=== PATIENT | male | born 1985 ===

== ENCOUNTER 2019-05-06 18:52 | Emergency (ER) | payer SELFPAY ==
--- NOTE | 2019-05-06 19:32 | EDM.PDOC ---
ED HPI GENERAL MEDICAL PROBLEM - General Chief Complaint: General Stated Complaint: MENTAL HEALTH CHECK Time Seen by Provider: 05/06/19 19:22 Source of Information: Reports: Patient, Police History Limitations: Reports: No Limitations - History of Present Illness INITIAL COMMENTS - FREE TEXT/NARRATIVE: HISTORY AND PHYSICAL: History of present illness: Patient is 33-year-old male presents to the ED in police custody for concern of cutting himself. Police state that per patient's and daughter, the patient ran out of meth today and he cut himself. Patient states he does not know why he cut himself but denies wanting to kill himself. He did not tell his family or police that he wanted to kill himself. He uses meth daily and today has drank about 42 oz of budweiser. Patient denies daily alcohol use, states the last time he drank was over one month ago. He denies history of anxiety or depression and no previous suicidal ideation or attempts. Denies significant past medical history. Review of systems: As per history of present illness and below otherwise all systems reviewed and negative. Past medical history: As per history of present illness and as reviewed below otherwise noncontributory. Surgical history: As per history of present illness and as reviewed below otherwise noncontributory. Social history: No reported history of drug or alcohol abuse. Family history: As per history of present illness and as reviewed below otherwise noncontributory. Physical exam: General: Patient sitting comfortably in no acute distress and nontoxic appearing HEENT: Atraumatic, normocephalic, pupils reactive, negative for conjunctival pallor or scleral icterus, mucous membranes moist, throat clear, neck supple, nontender, trachea midline. No meningeal signs. Lungs: Clear to auscultation, breath sounds equal bilaterally, chest nontender. Heart: S1S2, regular, negative for clicks, rubs, or overt murmur. Abdomen: Soft, nondistended, nontender. Negative for masses or hepatosplenomegaly. Negative for costovertebral tenderness. No rigidity, rebound , guarding. Pelvis: Stable nontender. Genitourinary: Deferred. Rectal: Deferred. Extremities: Atraumatic, negative for cords or calf pain. Neurovascular unremarkable. Neuro: Awake, alert, oriented. Cranial nerves II through XII unremarkable. Cerebellum unremarkable. Motor and sensory unremarkable throughout. Exam nonfocal. Notes: [facility] is not accepting psychiatric transfers at this time. Discussed with Dr. Benavidez, she is declined to accept this patient as he is denying suicidal thoughts. She advised police or family go to the States trust and estates attorney and get a petition for involuntary committal. This was discussed with police and patient will be taken to correction and police while file for involuntary committal. Diagnostics: Mental evaluation work up Therapeutics: [] Prescriptions: Impression: Cutting behavior, substance abuse, medical clearance for incarceration Definitive disposition and diagnosis as appropriate pending reevaluation and review of above. - Related Data Allergies Allergy/AdvReac Type Severity Reaction Status Date / Time No Known Allergies Allergy Verified 05/06/19 19:05 Home Meds: Home Meds . [No Known Home Meds] 05/06/19 [History] Past Medical History - Past Health History Medical/Surgical History: Denies Medical/Surgical History - Infectious Disease History Infectious Disease History: Reports: None Social & Family History - Family History Family Medical History: Noncontributory - Tobacco Use Smoking Status *Q: Never Smoker Used Tobacco, but Quit: No - Caffeine Use Caffeine Use: Reports: None - Recreational Drug Use Recreational Drug Use: Yes Recreational Drug Type: Reports: Methamphetamine ED ROS GENERAL - Review of Systems Review Of Systems: Comprehensive ROS is negative, except as noted in HPI. ED EXAM, GENERAL - Physical Exam Exam: See Below (see dictation) Course - Vital Signs Last Recorded V/S: Last Vital Signs Temp 96.9 F 05/06/19 19:05 Pulse 133 H 05/06/19 19:05 Resp 18 05/06/19 19:05 BP 94/52 L 05/06/19 19:11 Pulse Ox 95 05/06/19 19:05 - Orders/Labs/Meds Orders: Active Orders 24 hr Category Date Time Status EKG Documentation Completion [RC] STAT Care 05/06/19 19:19 Ordered DRUG SCREEN, URINE [URCHEM] Stat Lab 05/06/19 19:19 Ordered UA W/MICROSCOPIC [URIN] Stat Lab 05/06/19 19:19 Ordered Labs: Laboratory Tests 05/06/19 05/06/19 Range/Units 19:34 19:34 WBC 8.15 (4.0-11.0) K/uL RBC 6.02 H (4.50-5.90) M/uL Hgb 19.1 H (13.0-17.0) g/dL Hct 52.3 H (38.0-50.0) % MCV 86.9 (80.0-98.0) fL MCH 31.7 (27.0-32.0) pg MCHC 36.5 (31.0-37.0) g/dL RDW Std Deviation 41.0 (28.0-62.0) fl RDW Coeff of Mart 13 (11.0-15.0) % Plt Count 216 (150-400) K/uL MPV 12.20 H (7.40-12.00) fL Neut % (Auto) 58.9 (48.0-80.0) % Lymph % (Auto) 30.8 (16.0-40.0) % Gordon % (Auto) 7.9 (0.0-15.0) % Eos % (Auto) 2.0 (0.0-7.0) % Baso % (Auto) 0.4 (0.0-1.5) % Neut # (Auto) 4.8 (1.4-5.7) K/uL Lymph # (Auto) 2.5 H (0.6-2.4) K/uL Gordon # (Auto) 0.6 (0.0-0.8) K/uL Eos # (Auto) 0.2 (0.0-0.7) K/uL Baso # (Auto) 0.0 (0.0-0.1) K/uL Nucleated RBC % 0.0 /100WBC Nucleated RBCs # 0 K/uL Sodium 137 (136-148) mmol/L Potassium 3.9 (3.5-5.1) mmol/L Chloride 100 (98-107) mmol/L Carbon Dioxide 19.8 L (21.0-32.0) mmol/L BUN 11 (7.0-18.0) mg/dL Creatinine 0.9 (0.8-1.3) mg/dL Est Cr Clr Drug Dosing 100.60 mL/min Estimated GFR (MDRD) > 60.0 ml/min Glucose 309 H (74-106) mg/dL Calcium 9.6 (8.5-10.1) mg/dL Magnesium 2.0 (1.8-2.4) mg/dL Total Bilirubin 0.7 (0.2-1.0) mg/dL AST 28 (15-37) IU/L ALT 55 (14-63) IU/L Alkaline Phosphatase 85 (46-116) U/L Total Protein 9.2 H (6.4-8.2) g/dL Albumin 4.9 (3.4-5.0) g/dL Globulin 4.3 H (2.6-4.0) g/dL Albumin/Globulin Ratio 1.1 (0.9-1.6) TSH 3rd Generation 3.50 (0.36-3.74) uIU/mL Salicylates 1.4 (0-20) mg/dL Acetaminophen <2.0 ug/mL Ethyl Alcohol 67 mg/dL Departure - Departure Time of Disposition: 21:11 Disposition: Home, Self-Care 01 Condition: Good Clinical Impression: Medical clearance for incarceration, Substance abuse, Deliberate self-cutting - Discharge Information Referrals: PCP,None [Primary Care Provider] - Forms: ED Department Discharge Additional Instructions: The following information is given to patients seen in the emergency department who are being discharged to home. This information is to outline your options for follow-up care. We provide all patients seen in our emergency department with a follow-up referral. The need for follow-up, as well as the timing and circumstances, are variable depending upon the specifics of your emergency department visit. If you don't have a primary care physician on staff, we will provide you with a referral. We always advise you to contact your personal physician following an emergency department visit to inform them of the circumstance of the visit and for follow-up with them and/or the need for any referrals to a consulting specialist. The emergency department will also refer you to a specialist when appropriate. This referral assures that you have the opportunity for follow-up care with a specialist. All of these measure are taken in an effort to provide you with optimal care, which includes your follow-up. Under all circumstances we always encourage you to contact your private physician who remains a resource for coordinating your care. When calling for follow-up care, please make the office aware that this follow-up is from your recent emergency room visit. If for any reason you are refused follow-up, please contact the [facility] Emergency Department at and asked to speak to the emergency department charge nurse. WHITLEY [facility] [address] [place] [address] [facility] [address] [place] [address] Sepsis Event Note - Evaluation Sepsis Screening Result: No Definite Risk - Focused Exam Vital Signs: Vital Signs Temp Pulse Resp BP Pulse Ox 05/06/19 19:11 94/52 L 05/06/19 19:05 96.9 F 133 H 18 95 Date Exam was Performed: 05/06/19 Time Exam was Performed: 21:07 - My Orders Last 24 Hours: My Active Orders 05/06/19 19:19 EKG Documentation Completion [RC] STAT DRUG SCREEN, URINE [URCHEM] Stat UA W/MICROSCOPIC [URIN] Stat - Assessment/Plan Last 24 Hours: My Active Orders 05/06/19 19:19 EKG Documentation Completion [RC] STAT DRUG SCREEN, URINE [URCHEM] Stat UA W/MICROSCOPIC [URIN] Stat
[2019-05-06 20:03] LABS: BLOOD UREA NITROGEN,BUN 11 mg/dL (7.0-18.0); CARBON DIOXIDE,CO2 19.8 mmol/L (21.0-32.0); CHLORIDE,CL 100 mmol/L (98-107); GLUCOSE RANDOM 309 mg/dL (74-106); POTASSIUM,K 3.9 mmol/L (3.5-5.1); SODIUM,NA 137 mmol/L (136-148)
[2019-05-06 20:06] LABS: ACETAMINOPHEN <2.0 ug/mL
== END 2019-05-06 21:18 ==
LOC: MW.ED 18:52
DX: F19.10 Other psychoactive substance abuse, uncomplicated (principal); Z02.89 Encounter for other administrative examinations
CPT/HCPCS: 36415; 80053; 83735; 84443; 85025; 93005; 99282; 99284-25; G0480

== ENCOUNTER 2019-05-08 14:52 | Emergency (ER) | payer MEDICAID, OTHER ==
[2019-05-08 16:36] LABS: BLOOD UREA NITROGEN,BUN 11 mg/dL (7.0-18.0); CARBON DIOXIDE,CO2 25.5 mmol/L (21.0-32.0); CHLORIDE,CL 101 mmol/L (98-107); GLUCOSE RANDOM 243 mg/dL (74-106); LIPASE 150 U/L (73-393); POTASSIUM,K 3.9 mmol/L (3.5-5.1); SODIUM,NA 136 mmol/L (136-148)
--- NOTE | 2019-05-08 17:05 | CR ---
INDICATION: Withdrawal TECHNIQUE: Frontal view of the chest. COMPARISON: None FINDINGS/IMPRESSION: The lungs are clear. There is no sizable pleural effusion or pneumothorax. The cardiomediastinal silhouette is normal. The visualized osseous structures are unremarkable. Dictated by Cassy Rios MD @ May 08 2019 5:04PM Signed by Dr. Cassy Rios @ May 08 2019 5:04PM
--- NOTE | 2019-05-08 17:09 | EDM.PDOC ---
ED HPI GENERAL MEDICAL PROBLEM - General Chief Complaint: Drug or Alcohol Abuse Stated Complaint: detox Time Seen by Provider: 05/08/19 15:31 Source of Information: Reports: Patient History Limitations: Reports: No Limitations - History of Present Illness INITIAL COMMENTS - FREE TEXT/NARRATIVE: HISTORY AND PHYSICAL: History of present illness: Patient is a 33-year-old male who is in law enforcement custody who presents to the ED today for concern of an episode of breathing rapidly. community resource officer states that he was put in fdc yesterday for methamphetamine use. Patient denies any other substance use and methamphetamine and states he only used it a couple days ago. Law enforcement states that there was report that he had an episode of breathing rapidly and was not acting per his usual self earlier today. Patient states he does not have any symptoms or concerns at this time. Patient denies fever, chills, chest pain, shortness of breath, or cough. Denies headache, neck stiff ness, change in vision, syncope, or near syncope. Denies nausea, vomiting, abdominal pain, diarrhea, constipation, or dysuria. Has not noted any blood in urine or stool. Patient has been eating and drinking appropriately. Review of systems: As per history of present illness and below otherwise all systems reviewed and negative. Past medical history: As per history of present illness and as reviewed below otherwise noncontributory. Surgical history: As per history of present illness and as reviewed below otherwise noncontributory. Social history: See social history for further information Family history: As per history of present illness and as reviewed below otherwise noncontributory. Physical exam: General: Patient is alert, oriented, and in no acute distress. Patient sitting comfortably on exam table. HEENT: Atraumatic, normocephalic, pupils equal and reactive bilaterally, negative for conjunctival pallor or scleral icterus, mucous membranes moist, TMs normal bilaterally, throat clear, neck supple, nontender, trachea midline. No drooling or trismus noted. No meningeal signs. No hot potato voice noted. Lungs: Clear to auscultation, breath sounds equal bilaterally, chest nontender. Heart: S1S2, regular rate and rhythm without overt murmur Abdomen: Soft, nondistended, nontender. Negative for masses or hepatosplenomegaly. Negative for costovertebral tenderness. Pelvis: Stable nontender. Genitourinary: Deferred. Rectal: Deferred. Skin: Intact, warm, dry. No lesions or rashes noted. Extremities: Atraumatic, negative for cords or calf pain. Neurovascular unremarkable. Neuro: Awake, alert, oriented. Cranial nerves II through XII unremarkable. Cerebellum unremarkable. Motor and sensory unremarkable throughout. Exam nonfocal. Notes: Discussed the importance for follow-up with primary care provider. Voices understanding and is agreeable to plan of care. Denies any further questions or concerns at this time. Diagnostics: EKG, CBC, CMP, UA, bedside glucose, chest x-ray Therapeutics: NS Prescription: None Impression: Medical Screening exam H/O abnormal breathing pattern Plan: 1. Follow-up with your primary care provider as discussed. Return to the ED as needed and as discussed. 2. Medically screened for incarceration. Definitive disposition and diagnosis as appropriate pending reevaluation and review of above. - Related Data Allergies Allergy/AdvReac Type Severity Reaction Status Date / Time No Known Allergies Allergy Verified 05/06/19 19:05 Home Meds: Home Meds . [Unable to Verify Home Med List] 05/08/19 [History] Past Medical History - Past Health History Medical/Surgical History: Denies Medical/Surgical History - Infectious Disease History Infectious Disease History: Reports: None Social & Family History - Family History Family Medical History: Noncontributory - Tobacco Use Smoking Status *Q: Unknown Ever Smoked - Caffeine Use Caffeine Use: Reports: None - Recreational Drug Use Recreational Drug Use: No ED ROS GENERAL - Review of Systems Review Of Systems: Comprehensive ROS is negative, except as noted in HPI. ED EXAM, GENERAL - Physical Exam Exam: See Below (see dictation) Course - Vital Signs Last Recorded V/S: Last Vital Signs Temp 97.6 F 05/08/19 14:58 Pulse 91 05/08/19 14:58 Resp 22 H 05/08/19 14:58 BP 135/84 05/08/19 14:58 Pulse Ox 99 05/08/19 14:58 - Orders/Labs/Meds Orders: Active Orders 24 hr Category Date Time Status EKG Documentation Completion [RC] STAT Care 05/08/19 15:30 Active Glucose [Blood Glucose Check, Bedside] [RC] ONETIME Care 05/08/19 15:29 Active Labs: Laboratory Tests 12/23/19 12/23/19 12/23/19 Range/Units 15:52 15:52 17:00 WBC 6.51 (4.0-11.0) K/uL RBC 5.36 (4.50-5.90) M/uL Hgb 16.6 (13.0-17.0) g/dL Hct 47.1 (38.0-50.0) % MCV 87.9 (80.0-98.0) fL MCH 31.0 (27.0-32.0) pg MCHC 35.2 (31.0-37.0) g/dL RDW Std Deviation 42.0 (28.0-62.0) fl RDW Coeff of Mart 13 (11.0-15.0) % Plt Count 176 (150-400) K/uL MPV 11.60 (7.40-12.00) fL Neut % (Auto) 58.5 (48.0-80.0) % Lymph % (Auto) 32.1 (16.0-40.0) % [place]mer % (Auto) 5.4 (0.0-15.0) % Eos % (Auto) 3.7 (0.0-7.0) % Baso % (Auto) 0.3 (0.0-1.5) % Neut # (Auto) 3.8 (1.4-5.7) K/uL Lymph # (Auto) 2.1 (0.6-2.4) K/uL Gilmer # (Auto) 0.4 (0.0-0.8) K/uL Eos # (Auto) 0.2 (0.0-0.7) K/uL Baso # (Auto) 0.0 (0.0-0.1) K/uL Nucleated RBC % 0.0 /100WBC Nucleated RBCs # 0 K/uL Sodium 136 (136-148) mmol/L Potassium 3.9 (3.5-5.1) mmol/L Chloride 101 (98-107) mmol/L Carbon Dioxide 25.5 (21.0-32.0) mmol/L BUN 11 (7.0-18.0) mg/dL Creatinine 0.8 (0.8-1.3) mg/dL Est Cr Clr Drug Dosing 117.41 mL/min Estimated GFR (MDRD) > 60.0 ml/min Glucose 243 H (74-106) mg/dL Calcium 9.1 (8.5-10.1) mg/dL Total Bilirubin 0.8 (0.2-1.0) mg/dL AST 18 (15-37) IU/L ALT 45 (14-63) IU/L Alkaline Phosphatase 74 (46-116) U/L Troponin I < 0.050 (0.000-0.056) ng/mL Total Protein 7.6 (6.4-8.2) g/dL Albumin 3.9 (3.4-5.0) g/dL Globulin 3.7 (2.6-4.0) g/dL Albumin/Globulin Ratio 1.1 (0.9-1.6) Lipase 150 (73-393) U/L Urine Color YELLOW Urine Appearance CLEAR Urine pH 7.0 (5.0-8.0) Ur Specific [place] 1.010 (1.001-1.035) Urine Protein NEGATIVE (NEGATIVE) mg/dL Urine Glucose (UA) >=1000 (NEGATIVE) mg/dL Urine Ketones NEGATIVE (NEGATIVE) mg/dL Urine Occult Blood NEGATIVE (NEGATIVE) Urine Nitrite NEGATIVE (NEGATIVE) Urine Bilirubin NEGATIVE (NEGATIVE) Urine Urobilinogen 2.0 H (<2.0) EU/dL Ur Leukocyte Esterase NEGATIVE (NEGATIVE) Departure - Departure Time of Disposition: 17:09 Disposition: Home, Self-Care 01 Clinical Impression: Encounter for medical screening examination, History of abnormal breathing pattern - Discharge Information Referrals: PCP,None [Primary Care Provider] - Additional Instructions: The following information is given to patients seen in the emergency department who are being discharged to home. This information is to outline your options for follow-up care. We provide all patients seen in our emergency department with a follow-up referral. The need for follow-up, as well as the timing and circumstances, are variable depending upon the specifics of your emergency department visit. If you don't have a primary care physician on staff, we will provide you with a referral. We always advise you to contact your personal physician following an emergency department visit to inform them of the circumstance of the visit and for follow-up with them and/or the need for any referrals to a consulting specialist. The emergency department will also refer you to a specialist when appropriate. This referral assures that you have the opportunity for follow-up care with a specialist. All of these measure are taken in an effort to provide you with optimal care, which includes your follow-up. Under all circumstances we always encourage you to contact your private physician who remains a resource for coordinating your care. When calling for follow-up care, please make the office aware that this follow-up is from your recent emergency room visit. If for any reason you are refused follow-up, please contact the Emergency Department at and asked to speak to the emergency department charge nurse. Primary [facility] [address] [place] [id number] [facility] [address] [place] [id number] 1. Follow-up with your primary care provider as discussed. Return to the ED as needed and as discussed. 2. Medically screened for incarceration. Sepsis Event Note - Evaluation Sepsis Screening Result: No Definite Risk - Focused Exam Vital Signs: Vital Signs Temp Pulse Resp BP Pulse Ox 05/08/19 14:58 97.6 F 91 22 H 135/84 99 Date Exam was Performed: 05/08/19 Time Exam was Performed: 17:06 - My Orders Last 24 Hours: My Active Orders 05/08/19 15:29 Glucose [Blood Glucose Check, Bedside] [RC] ONETIME 05/08/19 15:30 EKG Documentation Completion [RC] STAT - Assessment/Plan Last 24 Hours: My Active Orders 05/08/19 15:29 Glucose [Blood Glucose Check, Bedside] [RC] ONETIME 05/08/19 15:30 EKG Documentation Completion [RC] STAT
== END 2019-05-08 17:25 | disposition home or self-care (01) ==
LOC: MW.ED 14:52
DX: Z13.89 Encounter for screening for other disorder (principal); Z87.09 Personal history of other diseases of the respiratory system
CPT/HCPCS: 36415; 71045; 71045-26; 80053; 81003; 83690; 84484; 85025; 93005; 99283; 99284-25